=== PATIENT | male | born 1955 | race Hispanic/Latino ===

== ENCOUNTER 2017-10-11 15:23 | Emergency (ER) | payer OTHER ==
[2017-10-11 15:35] VITALS: BP 138/98; PULSE 55; RESP 16; TEMP 97.4; O2SAT 99
[2017-10-11] MEDS ORDERED: Sodium Chloride 0.9% 1,000 ML IV STA (15:42)
--- NOTE | 2017-10-11 15:49 | ED PDOC ---
HPI: Back Time Seen by Provider: 10/11/17 15:36 Chief Complaint (Nursing): Back Pain Chief Complaint (Provider): Flank pain History Per: Patient History/Exam Limitations: no limitations Onset/Duration Of Symptoms: Days (x2) Current Symptoms Are (Timing): Still Present Additional Complaint(s): Kevin Palafox is a 61 year old male who presents to the emergency department complaining of right flank pain, onset 2 days ago. Patient also complains of nausea but no fever or vomiting. He also reports hematuria. No urinary frequency or dysuria. Patient has history of appendectomy. PMD: [facility] Past Medical History Reviewed: Historical Data, Nursing Documentation, Vital Signs Vital Signs: Last Vital Signs Temp 97.4 F L 10/11/17 15:34 Pulse 55 L 10/11/17 15:34 Resp 16 10/11/17 15:34 BP 138/98 H 10/11/17 15:34 Pulse Ox 99 10/11/17 15:34 - Surgical History Surgical History: Appendectomy - Family History Family History: States: Unknown Family Hx - Home Medications Home Medications: Ambulatory Orders Medication Instructions Recorded Ciprofloxacin HCl [Cipro] 500 mg PO BID #20 tab 10/11/17 Naproxen [Naprosyn] 500 mg PO Q12H #20 tab 10/11/17 Tamsulosin [Flomax] 0.4 mg PO DAILY #5 cap 10/11/17 - Allergies Allergies/Adverse Reactions: Allergies Allergy/AdvReac Type Severity Reaction Status Date / Time No Known Allergies Allergy Verified 10/11/17 15:33 Review of Systems ROS Statement: Except As Marked, All Systems Reviewed And Found Negative Constitutional: Negative for: Fever Gastrointestinal: Positive for: Nausea, Abdominal Pain (right flank pain). Negative for: Vomiting Genitourinary Male: Positive for: Hematuria. Negative for: Dysuria, Frequency Physical Exam - Reviewed Nursing Documentation Reviewed: Yes Vital Signs Reviewed: Yes - Physical Exam Appears: Positive for: Non-toxic, No Acute Distress Head Exam: Positive for: ATRAUMATIC, NORMOCEPHALIC Skin: Positive for: Normal Color, Warm, Dry Eye Exam: Positive for: EOMI, Normal appearance, PERRL Neck: Positive for: Normal, Painless ROM, Supple Cardiovascular/Chest: Positive for: Regular Rate, Rhythm. Negative for: Murmur Respiratory: Positive for: Normal Breath Sounds. Negative for: Accessory Muscle Use, Respiratory Distress Gastrointestinal/Abdominal: Positive for: Normal Exam, Soft. Negative for: Tenderness, Distended Back: Positive for: Normal Inspection. Negative for: L CVA Tenderness, R CVA Tenderness Extremity: Positive for: Normal ROM. Negative for: Pedal Edema, Deformity Neurologic/Psych: Positive for: Alert, Oriented (x3) - Laboratory Results Result Diagrams: 10/11/17 16:16 10/11/17 16:16 - ECG O2 Sat by Pulse Oximetry: 99 (RA) Pulse Ox Interpretation: Normal Medical Decision Making Medical Decision Making: Time: 15:42 Initial Plan: * CMP * CBC w/ differential * ED urine dipstick * NS IV 1000 ml at 100 mls/hr * Toradol 30 mg IVP * Zofran 4 mg IV * Pending CT Abdomen/Pelvis w/o contrast Scribe Attestation: Documented by Whit Londono, acting as a scribe for Abe Guido MD Provider Scribe Attestation: All medical record entries made by the Scribe were at my direction and personally dictated by me. I have reviewed the chart and agree that the record accurately reflects my personal performance of the history, physical exam, medical decision making, and the department course for this patient. I have also personally directed, reviewed, and agree with the discharge instructions and disposition. Disposition - Clinical Impression Clinical Impression: Kidney stone - Patient ED Disposition Is Patient to be Admitted: No Counseled Patient/Family Regarding: Studies Performed, Diagnosis, Need For Followup, Rx Given - Disposition Referrals: Iglesia Finch Jr., MD [Staff Provider] - Disposition: Routine/Home Disposition Time: 16:46 Condition: FAIR Prescriptions: Ciprofloxacin HCl [Cipro] 500 mg PO BID #20 tab Naproxen [Naprosyn] 500 mg PO Q12H #20 tab Tamsulosin [Flomax] 0.4 mg PO DAILY #5 cap Instructions: Kidney Stones (ED) Forms: [facility] (Armenian)
[2017-10-11 16:29] LABS: BASO % 0.5 % (0.0-2.0); EOS % 0.3 % (0.0-4.0); HEMOGLOBIN 12.9 g/dL (12.0-18.0); LYMPH # 1.3 K/uL (1.0-4.3); LYMPH % 13.7 % (20.0-40.0); MEAN CELL VOLUME 92.6 fl (80.0-94.0); MEAN CORPUSCULAR HGB CONC 33.4 g/dL (33.0-37.0); MEAN PLATELET VOLUME 8.8 fl (7.2-11.7); MONO # 0.5 K/uL (0.0-0.8); MONO % 5.6 % (0.0-10.0); NEUT # 7.4 K/uL (1.8-7.0); NEUT % 79.9 % (50.0-75.0); RBC 4.15 Mil/uL (4.40-5.90); RED CELL DISTRIBUTION WIDTH 13.5 % (11.5-14.5); WHITE BLOOD COUNT 9.2 K/uL (4.8-10.8)
[2017-10-11 16:30] LABS: ALB/GLOB RATIO 1.4 (1.0-2.1); ALBUMIN 4.4 g/dL (3.5-5.0); ALT/SGPT 53 U/L (21-72); AST/SGOT 42 U/L (17-59); BLOOD UREA NITROGEN 20 mg/dl (9-20); CALCIUM 9.3 mg/dL (8.4-10.2); GFR AFRICAN-AMERICAN > 60; GFR NON-AFRICAN AMERICAN > 60
--- NOTE | 2017-10-11 16:41 | CT ---
PROCEDURE: CT Abdomen and Pelvis without Oral or IV contrast. HISTORY: r/o kidney stone COMPARISON: None available. TECHNIQUE: Contiguous axial images of the abdomen and pelvis. No oral or IV contrast administered. Coronal and Sagittal reformats generated and reviewed. Radiation dose: Total exam DLP = 672.54 mGy-cm. This CT exam was performed using one or more of the following dose reduction techniques: Automated exposure control, adjustment of the mA and/or kV according to patient size, and/or use of iterative reconstruction technique. FINDINGS: There is limited evaluation of the solid organs without the administration of IV contrast. LOWER THORAX: No visible consolidation, pleural effusion, or pneumothorax. LIVER: Unremarkable unenhanced appearance. GALLBLADDER AND BILE DUCTS: Unremarkable unenhanced appearance. PANCREAS: Unremarkable unenhanced appearance. SPLEEN: Unremarkable unenhanced appearance. ADRENALS: Unremarkable unenhanced appearance. KIDNEYS AND URETERS: 3 mm distal right ureteral calculus (series 3, image 145) with mild proximal hydronephrosis and hydroureter. No obstructing calculus identified or hydronephrosis on the left. BLADDER: Thick-walled under distended urinary bladder. REPRODUCTIVE: Unremarkable. APPENDIX: Appendix is not identified. No secondary signs of acute appendicitis. BOWEL: The stomach is nondistended. Lack of oral contrast limits evaluation for bowel pathology. The bowel loops appear within normal limits of caliber without evidence of intestinal obstruction. PERITONEUM: No significant free fluid. No definite free air. LYMPH NODES: No bulky lymphadenopathy identified. VASCULATURE: No aortic aneurysm. BONES: Mild degenerative changes of the spine. OTHER FINDINGS: None. IMPRESSION: 3 mm distal right ureteral calculus with mild proximal hydronephrosis and hydroureter. Thick-walled under distended urinary bladder.
[2017-10-11] MEDS ORDERED: Albuterol 0.083% Inhal Sol (2.5 mg/3 mL) UD ONE (20:28)
== END 2017-10-11 17:03 | disposition home or self-care (01) ==
LOC: H.ER 15:23
DX: N13.2 Hydronephrosis with renal and ureteral calculous obstruction (principal); Z90.49 Acquired absence of other specified parts of digestive tract
CPT/HCPCS: 74176; 80053; 85025; 87086; 96361; 96374; 96375; 99282; J1885; J2405; J7040